=== PATIENT | female | born 1975 | race Caucasian/White ===

== ENCOUNTER 2019-06-10 10:35 | Emergency (ER) | payer OTHER ==
[~2019-06-10] VITALS: Ht 149.9 cm; Wt 63.5 kg
[2019-06-10] MEDS ORDERED: MUCINEX1200 MG PO ×2 (14:54)
[2019-06-10] MEDS ORDERED: ZITHROMAX500 MG PO (14:54)
== END 2019-06-10 15:33 | disposition home or self-care (01) ==
LOC: ER 10:35
DX: R05 Cough (principal); B96.0 Mycoplasma pneumoniae [M. pneumoniae] as the cause of diseases classified elsewhere

== ENCOUNTER 2020-08-20 15:36 | Emergency (ER) | payer OTHER ==
[~2020-08-20] VITALS: Ht 149.9 cm; Wt 59.0 kg
[~2020-08-20 15:36] MED LIST: MUCINEX1200 MG PO; ZITHROMAX500 MG PO
[2020-08-20] MEDS ORDERED: KETO10TA2 PO (20:26)
== END 2020-08-20 20:40 | disposition home or self-care (01) ==
LOC: ER 15:36
DX: R10.30 Lower abdominal pain, unspecified (principal)

== ENCOUNTER 2020-08-26 11:49 | Emergency (ER) | payer OTHER ==
[~2020-08-26] VITALS: Ht 149.9 cm; Wt 60.3 kg
[~2020-08-26 11:49] MED LIST changes: +KETO10TA2 PO
[2020-08-26] MEDS ORDERED: TRAMADOL HCL50 MG PO (19:46)
== END 2020-08-26 19:55 | disposition home or self-care (01) ==
LOC: ER 11:49
DX: R10.31 Right lower quadrant pain (principal); D25.9 Leiomyoma of uterus, unspecified

== ENCOUNTER → 2021-05-29 | Emergency (ER) | payer OTHER ==
[~2021-05-29] VITALS: Ht 149.9 cm; Wt 63.0 kg
[~2021-05-29] MED LIST changes: +TRAMADOL HCL50 MG PO
== END | disposition left against medical advice (07) ==
LOC: ER 18:23
DX: Z53.21 Procedure and treatment not carried out due to patient leaving prior to being seen by health care provider (principal)

== ENCOUNTER 2021-10-21 12:43 | Emergency (ER) | payer OTHER ==
[~2021-10-21] VITALS: Ht 149.9 cm; Wt 59.0 kg
== END 2021-10-21 21:28 | disposition home or self-care (01) ==
LOC: ER 12:43
DX: D25.9 Leiomyoma of uterus, unspecified (principal); R10.2 Pelvic and perineal pain; M41.9 Scoliosis, unspecified

== ENCOUNTER 2021-12-13 19:28 | Emergency (ER) | payer OTHER ==
[~2021-12-13] VITALS: Ht 149.9 cm; Wt 59.0 kg
[2021-12-13] MEDS ORDERED: INTESTINEX680 M1 PO (22:09)
[2021-12-13] MEDS ORDERED: LEVSIN/SL0.125 MG SL (22:09)
[2021-12-13] MEDS ORDERED: PEPCID AC20 MG PO (22:09)
== END 2021-12-13 22:23 | disposition home or self-care (01) ==
LOC: ER 19:28
DX: R19.7 Diarrhea, unspecified (principal)